=== PATIENT | female | born 1980 | race Caucasian/White ===

== ENCOUNTER → 2017-07-26 10:46 | Outpatient (CLI) | payer OTHER, SELFPAY ==
--- NOTE | 2017-07-26 10:47 | DI.RAD.S_ITS ---
PROCEDURE: XR CHEST 2V INDICATIONS: 37 y/o F w/ cough x 2 months TECHNIQUE: 2 views of the chest were acquired. COMPARISON: [facility], , CHEST 2 VIEW, 04/15/2012, 9:47. FINDINGS: Surgical changes and devices: None. Lungs and pleura: No pleural effusions or pneumothorax. Lungs are clear. Mediastinum: Mediastinal contours are normal. Heart size is normal. Bones and chest wall: No suspicious bony abnormalities. Soft tissues appear unremarkable. IMPRESSION: 1. No acute cardiopulmonary disease. Dictated by: Colin White M.D. on 07/26/2017 at 11:00 Approved by: Colin White M.D. on 07/26/2017 at 11:00
== END ==
PROVIDERS: Visit Provider Physician Assistant
DX: R05 Cough (principal)
CPT/HCPCS: 71046

== ENCOUNTER → 2018-03-28 09:54 | Outpatient (CLI) | payer OTHER, SELFPAY ==
--- NOTE | 2018-03-28 | DI.RAD.S_ITS ---
PROCEDURE: XR NASAL BONES MIN 3V INDICATIONS: NASAL PAIN, SNORING S/P TRAUMA TECHNIQUE: 3 views of the nasal bones acquired. COMPARISON: None. FINDINGS: Bones: No fractures or dislocations. Nasal septum is midline. Normal nasociliary nerve grooves are noted. Soft tissues: No suspicious soft tissue calcifications. IMPRESSION: No nasal bone fracture. Nasal septum is midline. Dictated by: Hardik Koch M.D. on 03/28/2018 at 10:47 Approved by: Hardik Koch M.D. on 03/28/2018 at 10:49
== END ==
PROVIDERS: Visit Provider Family Medicine
DX: J34.89 Other specified disorders of nose and nasal sinuses (principal); R06.83 Snoring
CPT/HCPCS: 70160

== ENCOUNTER 2018-06-17 20:45 | Emergency (ER) | payer OTHER, SELFPAY ==
[2018-06-17 20:50] VITALS: BP 117/49; PULSE 63; RESP 12; TEMP 36.6; O2SAT 100; BMI 20.8
--- NOTE | 2018-06-17 21:08 | DI.CT.S_ITS ---
PROCEDURE: CT HEAD/BRAIN WO CON INDICATIONS: worsening headache and neck pain over 1 week. sinus infection TECHNIQUE: Noncontrast 4.5 mm thick angled axial sections acquired from the foramen magnum to the vertex, with coronal and sagittal reformats. For radiation dose reduction, the following was used: automated exposure control, adjustment of mA and/or kV according to patient size. COMPARISON: None. FINDINGS: Image quality: Excellent. CSF spaces: Basal cisterns are patent. No extra-axial fluid collections. Ventricles are normal in size and shape. Brain: No midline shift. No intracranial masses or hemorrhage. Schuler-white matter interface is normal. Skull and face: Calvarium and visualized facial bones are intact, without suspicious lesions. Sinuses: Visualized sinuses and mastoids are clear. IMPRESSION: No acute intracranial disease process. Dictated by: Judy Proctor MD, PhD on 06/18/2018 at 7:38 Approved by: Judy Proctor MD, PhD on 06/18/2018 at 7:39
--- NOTE | 2018-06-17 21:21 | ED_ITS ---
HPI - Headache General Chief Complaint: Headache Stated Complaint: Headache,Vertigo,Neck pain for approx 10 days Time Seen by Provider: 06/17/18 20:52 Source: patient Mode of arrival: ambulatory Limitations: no limitations History of Present Illness HPI Narrative: Patient is a 38-year-old female who presents with worsening headache and sinus infection. Today she started with vertigo like symptoms worse whenever she turns her head and upper moves. No syncope. Her face has more pressure on the left than the right. The base of her neck her she overall feels like her headache is getting worse. She has been taking ibuprofen as without any relief. She was previously on azithromycin for a sinus infection and felt better after about 8 days however she felt it coming on again last week at which point she was started on Ceftin she has been on Ceftin for the last 5 or 6 days she overall does not feel like it is helping. MD Complaint: headache Related Data Home Medications Medication Instructions Recorded Confirmed sertraline 100 mg tablet 100 mg PO DAILY 07/26/17 07/26/17 Previous Rx's Medication Instructions Recorded ibuprofen 600 mg PO Q6HP PRN #60 tab 09/12/16 meclizine 25 mg PO BID-TID PRN #14 tab 06/17/18 ondansetron 4 mg PO Q6-8H PRN #10 tab 06/17/18 Allergies Allergy/AdvReac Type Severity Reaction Status Date / Time clavulanic acid Allergy Severe HIVES Verified 06/17/18 20:52 [From AUGMENTIN] doxycycline [DOXYCYCLINE] Allergy Intermediate GUMS SWELL Verified 06/17/18 20:52 morphine [MORPHINE] Allergy Intermediate RASH Verified 06/17/18 20:52 Sulfa (Sulfonamide Allergy Mild RASH Verified 06/17/18 20:52 Antibiotics) [SULFA (SULFONAMIDE ANTIBIOTICS)] codeine [CODEINE] Allergy Unknown WAS TOLD Verified 06/17/18 20:52 SHE COULD NOT TAKE IT Review of Systems Review of Systems ROS Unobtainable: All systems reviewed & are unremarkable except as noted in HPI and below Constitutional Denies chills, Denies fever(s), Reports headache(s), Denies lethargy and Denies weakness ENT Ears, Nose, Mouth, and Throat: Reports as per HPI, Denies dysphagia, Reports vertigo, Reports dizziness, Reports facial pain, Reports headache(s), Reports neck pain, Reports post nasal drip, Reports sinus pressure, Reports sore throat and Denies tongue swelling Cardiovascular Denies chest pain, Denies irregular heart rhythm, Denies lightheadedness, Denies palpitations, Denies dyspnea, Denies dyspnea on exertion and Denies orthopnea Respiratory Denies cough, Denies dyspnea, Denies dyspnea on exertion and Denies wheezing Gastrointestinal Gastrointestinal: Denies dysphagia, Denies diarrhea, Reports nausea and Reports vomiting (2 days ago x1 not sense then) Musculoskeletal Reports neck pain, Denies numbness and Denies tingling Integumentary/Breasts Denies pruritus, Denies erythema, Denies rash and Denies wounds Neurologic Reports as per HPI, Reports vertigo, Reports dizziness, Reports headache(s), Denies numbness, Denies tingling, Denies paresthesias, Denies tremor(s) and Denies weakness Endocrine Denies palpitations Allergic/Immunologic Denies tongue swelling and Denies wheezing PFSH Medical History Sinus infection (Acute) Social History Smoking Status: Current some day smoker Social History Smoking Status: Current some day smoker Exam Initial Vital Signs Initial Vital Signs: Vital Signs Temperature 97.9 F 06/17/18 20:50 Pulse Rate 63 06/17/18 20:50 Respiratory Rate 12 06/17/18 20:50 Blood Pressure 117/49 L 06/17/18 20:50 Pulse Oximetry 100 06/17/18 20:50 GENERAL: alert young female no acute distress HEENT: Head atraumatic,EOMI, pupils reactive, face symmetric, moist mucous membranes NECK: Full flexion-extension and rotation of neck no meningeal signs no midline tenderness and no step-offs EARS: Tympanic membranes visualized, no erythema or bulging, no hemotympanum PHARYNX: No erythema, no tonsillar exudate, no cervical lymphadenopathy CARDIOVASCULAR: Regular rate and rhythm without murmurs, rubs or gallops. RESPIRATORY: Breath sounds equal bilaterally, no wheezes rales or rhonchi. ABDOMEN: Soft, nontender. Normoactive bowel sounds all 4 quadrants. No guarding or rebound. EXTREMITIES: Normal range of motion, no clubbing or edema. Neurovascularly intact NEUROLOGICAL: Alert and oriented x4.Normal gait and speech. Cranial nerves II through XII grossly intact. 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 Course Orders Ordered: ED Orders 06/17/18 21:07 EKG-12 Lead Stat 06/17/18 21:08 CT head/brain wo con Stat 06/17/18 21:45 Basic Metabolic Panel Stat Complete Blood Count AUTO DIFF Stat Discontinued Medications Diphenhydramine HCl (Benadryl) 25 mg IV NOW ONE Stop: 06/17/18 21:08 Last Admin: 06/17/18 21:52 Dose: 25 mg Sodium Chloride (Normal Saline 0.9%) 1,000 mls @ 1,000 mls/hr IV BOLUS ONE Stop: 06/17/18 22:06 Last Infusion: 06/17/18 23:42 Dose: 0 mls/hr Admin: 06/17/18 21:22 Dose: 1,000 mls/hr Ketorolac Tromethamine (Toradol) 30 mg IV NOW ONE Stop: 06/17/18 21:08 Last Admin: 06/17/18 21:52 Dose: 30 mg Ondansetron HCl (Zofran Odt Prepack) 1 bottle MISC SEEINSTR ONE Stop: 06/17/18 23:25 Last Admin: 06/17/18 23:30 Dose: 1 bottle Prochlorperazine (Compazine) 10 mg IV NOW ONE Stop: 06/17/18 21:08 Last Admin: 06/17/18 21:52 Dose: 10 mg Vital Signs - 8 hr 06/17/18 20:50 06/17/18 21:52 06/17/18 23:40 Temperature 97.9 F Pulse Rate 63 60 72 Respiratory Rate 12 18 Blood Pressure 117/49 L 110/72 102/60 Pulse Oximetry 100 98 MDM - Headache Lab Data Attestation: I reviewed the patient's lab results. Result diagrams: 06/17/18 21:45 06/17/18 21:45 Lab Results 06/17/18 06/17/18 Range/Units 21:45 21:45 WBC 8.9 (4.5-11.0) X10^3/uL RBC 4.27 (4.0-5.2) X10^6/uL Hgb 14.2 (12.0-16.0) g/dL Hct 41.0 (36-46) % MCV 96.0 (80-100) fL MCH 33.2 (26-34) PG MCHC 34.6 (30-36) % RDW 12.0 (11.6-14.8) % Plt Count 243 (150-400) X10^3/uL Neut % (Auto) 51.0 (50-75) % Lymph % (Auto) 37.5 (25-40) % [place] % (Auto) 5.9 (3-14) % Eos % (Auto) 4.8 H (2-4) % Baso % (Auto) 0.8 (0-2) % Neut # (Auto) 4500 (4113-8219) /uL Lymph # (Auto) 3300 (3415-5252) /uL [place] # (Auto) 500 (0-900) /uL Eos # (Auto) 400 (0-450) /uL Baso # (Auto) 100 (0-100) /uL Sodium 141 (137-145) mmol/L Potassium 4.3 (3.4-5.1) mmol/L Chloride 104 (98-107) mmol/L Carbon Dioxide 28 (22-32) mmol/L BUN 15 (7-17) mg/dL Creatinine 0.60 (0.52-1.04) mg/dL Estimated GFR > 60.0 (>60) mL/min BUN/Creatinine Ratio 25.0 H (6-22) Glucose 79 (70-100) mg/dL Calcium 9.0 (8.4-10.2) mg/dL Point of Care Testing Test Results Negative Urine Dip Bedside Urine Glucose Negative Bedside Urine Bilirubin - Negative Bedside Urine Ketone - Negative Urine Specific [place] 1.020 Bedside Urine Occult Blood - Negative Bedside Urine pH 7.0 Bedside Urine Protein - Negative Bedside Urine Urobilinogen - Negative Bedside Urine Nitrite - Negative Bedside Urine Leukocytes - Negative Esterase Imaging Data CT scan - head: Radiologist's impression: Radia report: no significant abnormalities ECG Data Attestation: I personally reviewed and interpreted this ECG as follows: Prior ECG tracings: not available for review Interpretation: Normal sinus rhythm rate 59 year interval [address] changes no T-wave inversions QTC is 416 MDM Narrative Medical decision making narrative: Patient overall is feeling significantly better no longer dizzy and headache and neck pain has improved. She is tired from Benadryl. Does not appear septic no meningeal signs. Likely combination of sinus headache and migraine. At this time recommend finishing Ceftin as previously prescribed. Discharge Plan Departure Patient Disposition: Home Clinical Impression: Vertigo Sinusitis Qualifiers: Sinusitis location: maxillary Chronicity: acute Recurrence: recurrent Qualified Code(s): J01.01 - Acute recurrent maxillary sinusitis Discharge Date/Time: 06/17/18 23:42 Interventions: ED Discharge Assessment Last Done: 06/17/18 23:40 Instructions: DI for Sinusitis, DI for Vertigo, DI for Sinus Headache Activity Restrictions/Additional Instructions: *You have been diagnosed with sinusitis, migraine, vertigo *What to do: Increase fluid intake. I think symptoms are related to migraine in sinus infection *Continue to take medications as directed Continue antibiotics as previously prescribed and finished Zofran 4 mg every 6-8 hours if needed for nausea or vomiting meclizine 1 tablet every 8 hours if needed for dizziness Ibuprofen 800 mg every 8 hours only if needed for pain with food *Follow up with your primary care provider in 2-3 days *Return to ER if you should have worsening dizziness, worse headache, fever, worsening neck pain, rash or any new, worsening or concerning symptoms Prescriptions: New meclizine 25 mg tablet 25 mg PO BID-TID PRN (Reason: dizziness) Qty: 14 RF: 0 ondansetron 4 mg tablet,disintegrating 4 mg PO Q6-8H PRN (Reason: nausea and vomiting) Qty: 10 RF: 0 No Action sertraline 100 mg tablet 100 mg PO DAILY RF: 0 ibuprofen 600 MG tablet 600 mg PO Q6HP PRNQty: 60 RF: 0
[2018-06-17] MEDS: SODIUM CHLORIDE 0.9% 1,000 ML 1000 ML IV (21:22)
[2018-06-17 21:52] VITALS: BP 110/72; PULSE 60
[2018-06-17] MEDS: PROCHLORPERAZINE 10 MG/2 ML VIAL IV (21:52)
[2018-06-17] MEDS: KETOROLAC 60 MG/2 ML VIAL 30 MG IV (21:52)
[2018-06-17] MEDS: diphenhydrAMINE 50 MG/ML VIAL 25 MG IV (21:52)
[2018-06-17 21:57] LABS: Add Manual Diff / Slide Review NO; Basophils Absolute Auto 100 /uL (0-100); Basophils Percent Auto 0.8 % (0-2); Eosinophils Absolute Auto 400 /uL (0-450); Eosinophils Percent Auto 4.8 % (2-4); Hemoglobin 14.2 g/dL (12.0-16.0); Lymphocytes Absolute Auto 3300 /uL (1100-4500); Lymphocytes Percent Auto 37.5 % (25-40); Mean Corpuscular HGB Conc 34.6 % (30-36); Mean Corpuscular Hemoglobin 33.2 PG (26-34); Monocytes Absolute Auto 500 /uL (0-900); Monocytes Percent Auto 5.9 % (3-14); Neutrophils Absolute Auto 4500 /uL (1500-7000); Platelet Count 243 X10^3/uL (150-400); Red Blood Cell Count 4.27 X10^6/uL (4.0-5.2); White Blood Cell Count 8.9 X10^3/uL (4.5-11.0)
[2018-06-17 22:15] LABS: Blood Urea Nitrogen 15 mg/dL (7-17); Carbon Dioxide 28 mmol/L (22-32); Chloride 104 mmol/L (98-107); Estimated Glomerular Filt Rate > 60.0 mL/min (>60); Glucose 79 mg/dL (70-100); HEMOLYSIS 45 (0-50); Potassium 4.3 mmol/L (3.4-5.1); Sodium 141 mmol/L (137-145)
[2018-06-17] MEDS: ONDANSETRON 4 MG ODT PREPACK 1 BOTTLE MISC (23:30)
[2018-06-17 23:40] VITALS: BP 102/60; PULSE 72; RESP 18; O2SAT 98
== END 2018-06-17 23:42 | disposition home or self-care (01) ==
PROVIDERS: Emergency Provider Emergency Medicine
DX: J01.01 Acute recurrent maxillary sinusitis (principal); R42 Dizziness and giddiness; M54.2 Cervicalgia
CPT/HCPCS: 70450; 80048; 81003; 81025; 85025; 93005; 93010; 96361; 96374; 96375; 99283; 99285; J0780; J1200; J1885

== ENCOUNTER → 2019-01-04 18:54 | Outpatient (CLI) | payer OTHER, SELFPAY ==
--- NOTE | 2019-01-04 18:57 | DI.MRI.S_ITS ---
PROCEDURE: MR HEAD/BRAIN WO CON INDICATIONS: headaches. ? low CSF presure guerrero's TECHNIQUE: Noncontrast axial T1 spin echo, axial T2 fast spin echo, sagittal and axial FLAIR, coronal T2 fast spin echo, axial gradient echo, axial diffusion and ADC through the brain. COMPARISON: [facility], CT, CT HEAD/BRAIN WO CON, 06/17/2018, 22:03. FINDINGS: Image quality: Excellent. CSF Spaces: Basal cisterns are patent. No extra-axial fluid collections. Ventricles are normal in size and shape. Brain: No intracranial masses or hemorrhage. Schuler/white matter interface is normal. Brainstem appears normal. Diffusion-weighted images demonstrate no acute ischemic insult. No chronic ischemic insults. Normal intravascular flow voids are present. Skull and face: Calvarium has normal marrow signal. Orbits appear normal. Sinuses: Sinuses and mastoids are clear. IMPRESSION: 1. No explanation for headache. 2. No acute process. No recent infarct. Dictated by: Marie Capps M.D. on 01/05/2019 at 9:58 Approved by: Marie Capps M.D. on 01/05/2019 at 10:00
== END ==
PROVIDERS: Family Provider Family Medicine; PCP Family Medicine; Visit Provider Family Medicine
DX: G43.909 Migraine, unspecified, not intractable, without status migrainosus (principal)
CPT/HCPCS: 70551

== ENCOUNTER → 2019-04-11 09:33 | Outpatient (CLI) | payer OTHER, SELFPAY ==
[2019-04-11 10:22] LABS: Platelet Count 245 X10^3/uL (150-400)
[2019-04-11 10:33] LABS: INR 1.1 (0.9-1.3); Prothrombin Time 12.7 SECONDS (10.1-12.7)
== END ==
PROVIDERS: Family Provider Family Medicine; PCP Family Medicine; Referring Provider Family Medicine; Visit Provider Family Medicine
DX: R51 Headache (principal)
CPT/HCPCS: 36415; 85049; 85610

== ENCOUNTER → 2019-07-15 09:12 | Outpatient (CLI) | payer OTHER, SELFPAY ==
--- NOTE | 2019-07-15 | DI.US.S_ITS ---
ULTRASOUND OF LEFT BREAST: 07/15/2019 CLINICAL: Palp mass left breast. Comparison is made to exams dated: 02/27/2016 ultrasound, 06/19/2011 mammogram, and 06/19/2011 [facility]. Color flow and real-time ultrasound of the left breast were performed. Schuler scale images of the real-time examination were reviewed. There is a benign 0.7 cm x 0.8 cm x 0.3 cm wider than tall oval normal lymph node in the left breast at 3 o'clock middle depth 4 cm from the nipple. This oval normal lymph node is hypoechoic with fatty hilum. This correlates as palpated and with area of clinical concern. IMPRESSION: PROBABLY BENIGN The 0.7 cm x 0.8 cm x 0.3 cm wider than tall oval normal lymph node in the left breast is consistent with a lymph node and is benign. However, a follow-up right mammogram in 6 months is recommended to demonstrate stability of two groups of probably benign calcifications in the Right breast which are described in a separate report. Additionally, recommended clinical follow up for persistent or worsening left breast symptoms or development of any clinically suspicious findings. This exam was interpreted at Station ID: [id number]. Electronically Signed By: Bola Mackenzie M.D. aty/:07/15/2019 11:12:21 letter sent: Followup Recommended Ultrasound BI-RADS: 3 Probably benign
--- NOTE | 2019-07-15 | DI.MG.S_ITS ---
BILATERAL DIGITAL DIAGNOSTIC MAMMOGRAM 3D/2D: 07/15/2019 CLINICAL: Left breast mass. Comparison is made to exam dated: 06/19/2011 [facility]. The tissue of both breasts is heterogeneously dense. This may lower the sensitivity of mammography. There are new grouped heterogeneous calcifications in the right breast at 11 o'clock anterior depth. There also are grouped fine punctate calcifications in the right breast middle depth central to the nipple seen on the mediolateral oblique view only. They are best seen on the lateral views and not definitively visualized on the craniocaudal views. No other significant masses, calcifications, or other findings are seen in either breast. IMPRESSION: INCOMPLETE: NEEDS ADDITIONAL IMAGING EVALUATION The new grouped heterogeneous calcifications in the right breast at 11 o'clock anterior depth resemble dermal calcifications and are probably benign. The grouped fine punctate calcifications in the right breast middle depth central to the nipple seen on the mediolateral oblique view only are close to scar from prior surgery and are probably benign. There is no abnormality seen in the left breast to correspond with the area of clinical concern and palpable abnormality indicated by triangular marker in the middle depth in the outer aspect, however, ultrasound is recommended which is scheduled to immediately follow this examination. This exam was interpreted at Station ID: [id number]. NOTE: For mammograms, a report in lay terms will be sent to the patient. Approximately 15% of breast malignancies will not be visualized mammographically. In the management of a palpable breast mass, a negative mammogram must not discourage biopsy of a clinically suspicious lesion. Electronically Signed By: Bola Mackenzie M.D. aty/:07/15/2019 11:07:27 ACR BI-RADS Category 0: Incomplete [id number]
== END ==
PROVIDERS: Family Provider Family Medicine; PCP Family Medicine; Referring Provider Family Medicine; Visit Provider Family Medicine
DX: R92.1 Mammographic calcification found on diagnostic imaging of breast (principal)
CPT/HCPCS: 76642; 77066; G0279